=== PATIENT | female | born 1955 | race Caucasian/White ===

== ENCOUNTER 2018-04-02 20:28 | Emergency (ER) | payer OTHER ==
[~2018-04-02] VITALS: Ht 175.3 cm; Wt 54.0 kg
[2018-04-02 20:45] VITALS: BP 170/77; PULSE 73; RESP 20; TEMP 98.9; O2SAT 99
[2018-04-02] MEDS ORDERED: SODIUM CHLOR 0.9% 1000 ML INJ 1,000 ML IV SCH (23:51)
--- NOTE | 2018-04-02 23:54 | PD ---
HPI Chief Complaint: GI Complaint Time Seen by Provider: 23:47 Travel History International Travel<30 days: No Contact w/Intl Traveler<30days: No Traveled to known affect area: No History of Present Illness HPI 63-year-old female here for evaluation of sudden onset of dizziness, nausea, and vomiting. Symptoms started at around 6:00 PM today. She is from [place] and is here for the weekend. 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 She has been seen at the [facility] for this. She denies previous episodes of dizziness. No fevers, chills, cough, or recent illness. Symptoms are persistent, constant, worse with movements. No paresthesias or motor deficits. PFSH Social History Tobacco Use: No Allergies-Medications (Allergen,Severity, Reaction): Coded Allergies: Penicillins (Verified Allergy, Unknown, 04/02/18) codeine (Verified Allergy, Unknown, 04/02/18) Reported Meds & Prescriptions Reported Meds & Active Scripts Active Zofran Odt (Ondansetron Odt) 4 Mg Tab 4 Mg SL Q8HR PRN Meclizine (Meclizine HCl) 25 Mg Tab 25 Mg PO TID PRN Review of Systems Except as stated in HPI: all other systems reviewed are Neg Physical Exam Narrative GENERAL: Well-developed, well-nourished, thin, holding emesis bag, holding head still SKIN: Focused skin assessment warm/dry. HEAD: Atraumatic. Normocephalic. EYES: Pupils equal, round, 3 mm, reactive to light. EOMI. Horizontal nystagmus. No scleral icterus. No injection or drainage. ENT: Mucous membranes pink and dry. Bilateral tympanic membranes and external auditory canals are normal. NECK: Trachea midline. No JVD. CARDIOVASCULAR: Regular rate and rhythm. No murmur appreciated. RESPIRATORY: No accessory muscle use. Clear to auscultation. Breath sounds equal bilaterally. GASTROINTESTINAL: Abdomen soft, non-tender, nondistended. MUSCULOSKELETAL: No obvious deformities. No clubbing. No cyanosis. No edema. NEUROLOGICAL: Awake and alert. No obvious cranial nerve deficits. Motor grossly within normal limits. Normal speech. No focal deficits. PSYCHIATRIC: Appropriate mood and affect; insight and judgment normal. Data Data Last Documented VS Vital Signs Date Time Temp Pulse Resp B/P (MAP) Pulse Ox O2 Delivery O2 Flow Rate FiO2 04/02/18 20:45 98.9 73 20 170/77 (108) 99 Orders Orders Complete Blood Count With Diff (04/02/18 23:51) Comprehensive Metabolic Panel (04/02/18 23:51) Urinalysis - C+S If Indicated (04/02/18 23:51) Sodium Chlor 0.9% 1000 Ml Inj (Ns 1000 M (04/02/18 23:51) Sodium Chloride 0.9% Flush (Ns Flush) (04/03/18 00:00) Meclizine (Antivert) (04/03/18 00:00) Metoclopramide Inj (Reglan Inj) (04/03/18 00:00) Ondansetron Odt (Zofran Odt) (04/03/18 00:30) Meclizine (Antivert) (04/03/18 01:15) Ed Discharge Order (04/03/18 01:23) Labs Laboratory Tests Test 04/03/18 00:00 White Blood Count 6.6 TH/MM3 Red Blood Count 4.02 MIL/MM3 Hemoglobin 12.5 GM/DL Hematocrit 36.3 % Mean Corpuscular Volume 90.4 FL Mean Corpuscular Hemoglobin 31.1 PG Mean Corpuscular Hemoglobin Concent 34.4 % Red Cell Distribution Width 13.1 % Platelet Count 223 TH/MM3 Mean Platelet Volume 8.3 FL Neutrophils (%) (Auto) 83.8 % Lymphocytes (%) (Auto) 9.9 % Monocytes (%) (Auto) 5.9 % Eosinophils (%) (Auto) 0.2 % Basophils (%) (Auto) 0.2 % Neutrophils # (Auto) 5.6 TH/MM3 Lymphocytes # (Auto) 0.7 TH/MM3 Monocytes # (Auto) 0.4 TH/MM3 Eosinophils # (Auto) 0.0 TH/MM3 Basophils # (Auto) 0.0 TH/MM3 CBC Comment DIFF FINAL Differential Comment Blood Urea Nitrogen 11 MG/DL Creatinine 0.60 MG/DL Random Glucose 115 MG/DL Total Protein 8.2 GM/DL Albumin 4.8 GM/DL Calcium Level 8.8 MG/DL Alkaline Phosphatase 68 U/L Aspartate Amino Transf (AST/SGOT) 38 U/L Alanine Aminotransferase (ALT/SGPT) 36 U/L Total Bilirubin 0.7 MG/DL Sodium Level 132 MEQ/L Potassium Level 4.1 MEQ/L Chloride Level 92 MEQ/L Carbon Dioxide Level 28.8 MEQ/L Anion Gap 11 MEQ/L Estimat Glomerular Filtration Rate 101 ML/MIN [facility] Medical Decision Making Medical Screen Exam Complete: Yes Emergency Medical Condition: Yes Differential Diagnosis Vertigo, dehydration, metabolic abnormality, UTI, intracranial abnormality Narrative Course Vital signs reviewed. I told the patient that I would like to perform a CT of her head after my assessment, however she has declined this exam, stating that she has had several CTs in the past as well as recent MRIs of her brain, and states that they are unremarkable. CBC: WBC 6.6, hemoglobin 12.5, hematocrit 36.3, platelets 223, neutrophils 84%. CMP is remarkable for sodium 132, chloride 92, otherwise unremarkable. Patient was given 10 mg of IV Reglan, 25 mg of meclizine, and 4 mg of oral Zofran. She was also provided a liter of normal saline IV. On reassessment she states that her nausea has resolved and that her dizziness has significantly improved. She would like to be discharged home. She is in town for the weekend and will be returning to [place] on Friday. I will give her a prescription for meclizine and Zofran. She will return for worsening symptoms or any other concerns. Diagnosis Primary Impression: Acute onset of severe vertigo Referrals: Primary Care Physician 3 days Additional Instructions: Follow-up with your physicians this week. Return to the emergency department for worsening symptoms or any other concerns. Scripts Ondansetron Odt (Zofran Odt) 4 Mg Tab 4 MG SL Q8HR Y for Nausea/Vomiting, #30 TAB 0 Refills Prov: Ray Grey MD 04/03/18 Meclizine (Meclizine) 25 Mg Tab 25 MG PO TID Y for VERTIGO, #30 TAB 0 Refills Prov: Ray Grey MD 04/03/18 Disposition: 01 DISCHARGE HOME Condition: Stable Ray Grey MD April 02, 2018 23:54
[2018-04-03] MEDS ORDERED: METOCLOPRAMIDE HCL 10 MG/2 ML VIAL IV PUSH ONE
[2018-04-03] MEDS ORDERED: SODIUM CHLORIDE 0.9% FLUSH 10 ML FLUSH IV FLUSH PRN
[2018-04-03 00:15] LABS: AUTOMATED NEUTROPHIL # 5.6 TH/MM3 (1.8-7.7); BASOPHIL % 0.2 % (0.0-2.0); EOSINOPHIL % 0.2 % (0.0-4.0); HEMATOCRIT 36.3 % (35.0-46.0); HEMOGLOBIN 12.5 GM/DL (11.6-15.3); LYMPH % 9.9 % (9.0-44.0); LYMPHOCYTE # 0.7 TH/MM3 (1.0-4.8); MEAN CELL VOLUME 90.4 FL (80.0-100.0); MEAN CORPUSCULAR HEMOGLOBIN 31.1 PG (27.0-34.0); MEAN CORPUSCULAR HGB CONC 34.4 % (32.0-36.0); MEAN PLATELET VOLUME 8.3 FL (7.0-11.0); MONO % 5.9 % (0.0-8.0); MONOCYTE # 0.4 TH/MM3 (0-0.9); NEUT % 83.8 % (16.0-70.0); PLATELET COUNT 223 TH/MM3 (150-450); RED BLOOD COUNT 4.02 MIL/MM3 (4.00-5.30); RED CELL DISTRIBUTION WIDTH 13.1 % (11.6-17.2); WHITE BLOOD COUNT 6.6 TH/MM3 (4.0-11.0)
[2018-04-03 00:23] LABS: ALBUMIN 4.8 GM/DL (3.4-5.0); ALT (GPT) 36 U/L (10-53); AST (GOT) 38 U/L (15-37); BICARBONATE 28.8 MEQ/L (21.0-32.0); BLOOD UREA NITROGEN 11 MG/DL (7-18); CALCIUM 8.8 MG/DL (8.5-10.1); CHLORIDE 92 MEQ/L (98-107); GLOMERULAR FILTRATION RATE 101 ML/MIN (>89); GLUCOSE,RANDOM 115 MG/DL (74-106); SODIUM (NA) 132 MEQ/L (136-145)
[2018-04-03 00:25] LABS: ALKALINE PHOSPHATASE 68 U/L (45-117); TOTAL BILIRUBIN ADULT 0.7 MG/DL (0.2-1.0); TOTAL PROTEIN 8.2 GM/DL (6.4-8.2)
[2018-04-03] MEDS ORDERED: ONDANSETRON ODT 4 MG TAB PO ONE (00:30)
[2018-04-03] MEDS ORDERED: MECLIZINE HCL 25 MG TAB PO ONE ×2 (01:15)
[2018-04-03] MEDS ORDERED: ZOFR4TAB3 SL (01:22)
[2018-04-03] MEDS ORDERED: MECL-62 PO (01:22)
== END 2018-04-03 01:39 | disposition home or self-care (01) ==
LOC: NEPD 20:28
DX: R42 Dizziness and giddiness (principal); R11.2 Nausea with vomiting, unspecified; Z88.0 Allergy status to penicillin; Z88.5 Allergy status to narcotic agent
CPT/HCPCS: 80053; 85025; 96361; 96374; 99284; J2765; J7030